=== PATIENT | female | born 1980 | race African-American/Black ===

== ENCOUNTER 2025-08-14 16:04 | Emergency (ER) | payer BC ==
[~2025-08-14] VITALS: Ht 172.7 cm; Wt 82.0 kg
[2025-08-14 16:06] VITALS: TEMP 36.7; O2SAT 97
[2025-08-14] MEDS: ACETAMINOPHEN 325MG TABLET PO ONE (18:24)
[2025-08-14] MEDS: LIDOCAINE HCL/EPINEPHRINE 1%-EPI 1:100,000 20ML VIAL INFIL ONE (18:24)
[2025-08-14] MEDS: HYDROCODONE/ACETAMINOPHEN 5/325MG TABLET PO ONE (19:58)
[2025-08-14] MEDS ORDERED: HYDR-4001 MT (22:02)
[2025-08-14] MEDS ORDERED: IBUP-1455 MT (22:07)
[2025-08-14] MEDS ORDERED: CEPH500T MT (22:07)
[2025-08-14] MEDS ORDERED: BO1 TP (22:07)
[2025-08-14 22:52] VITALS: BP 113/67; PULSE 64; RESP 16; O2SAT 98
== END 2025-08-14 22:53 | disposition home or self-care (01) ==
LOC: ER 16:04
DX: S01.412A Laceration without foreign body of left cheek and temporomandibular area, initial encounter (principal); S01.21XA Laceration without foreign body of nose, initial encounter; S05.32XA Ocular laceration without prolapse or loss of intraocular tissue, left eye, initial encounter; S01.81XA Laceration without foreign body of other part of head, initial encounter; M25.522 Pain in left elbow; V00.148A Other scooter (nonmotorized) accident, initial encounter; Y93.89 Activity, other specified; Y92.89 Other specified places as the place of occurrence of the external cause; Y99.8 Other external cause status
CPT/HCPCS: 73080; 70450; 70486; 12013; 99284; J2004; Z7610 ×3